=== PATIENT | male | born 2000 | race Caucasian/White ===

== ENCOUNTER 2020-01-31 14:10 | Observation (INO) ==
[~2020-01-31 14:10] MED LIST: DIPRIVAN VIAL ONE; NORCURON INJ 10 MG VIAL ONE; QUELICIN (OR ANECTINE) ONE; SUPRANE ONE; VERSED ONE; ZOFRAN INJ 4 MG VIAL ONE
[2020-01-31 14:18] VITALS: BMI 29.5
[2020-01-31] MEDS ORDERED: TORADOL 30 MG VIAL IVP ONE (15:58)
[2020-01-31] MEDS ORDERED: NS 1000 ML 1,000 ML IV SCH (16:00)
--- NOTE | 2020-01-31 16:27 | RAD ---
HISTORYRLQ PAIN NONESTUDYACUTE ABDOMEN SERIESCOMPARISONNoneFINDINGSThe trachea is midline. The cardiac silhouette is [unremarkable]. [The lungs are clear without focal mass or consolidation. There is no effusion or pneumothorax.] [The bony thorax is unremarkable].Flat plate and upright evaluation of the abdomen demonstrates a [normal bowel gas pattern]. There is no pneumoperitoneum. No pathological soft tissue mass or calcification can be observed. The bony structures are grossly intact.IMPRESSION1. [No acute cardiopulmonary disease.]2. [No evidence for acute abdominal pathology identified.]Electronically signed by: PATRICE CRYSTAL (Jan 31, 2020 16:26:36)
[2020-01-31] MEDS ORDERED: NS 1000 ML 1,000 ML ONE (16:28)
[2020-01-31] MEDS ORDERED: TORADOL 30 MG VIAL ONE (16:28)
[2020-01-31 16:49] LABS: BASOPHILS % (AUTO) 0.2 % (0.2-1.0); EOSINOPHILS # (AUTO) 0.3 x10^3/uL (0.0-0.2); EOSINOPHILS % (AUTO) 2.2 % (0.9-2.9); HEMATOCRIT 48.8 % (42.0-54.0); HEMOGLOBIN 16.7 g/dL (13.5-18.0); LYMPHOCYTES # (AUTO) 1.3 X10^3/uL (1.3-2.9); LYMPHOCYTES % (AUTO) 9.2 % (21.0-51.0); MEAN CORPUSCULAR HEMOGLOBIN 29.4 pg (27.0-34.0); MEAN CORPUSCULAR HGB CONC 34.1 g/dL (33.0-35.0); MEAN CORPUSCULAR VOLUME 86.1 fL (80.0-100.0); MEAN PLATELET VOLUME 7.8 fL (7.4-11.0); MONOCYTES # (AUTO) 0.8 x10^3/uL (0.3-0.8); NEUTROPHILS # (AUTO) 11.2 x10^3/uL (2.2-4.8); NEUTROPHILS % (AUTO) 82.4 % (42.0-75.0); PLATELET COUNT 254 X10^3/uL (150.0-450.0); RED BLOOD COUNT 5.67 X10^6/uL (4.7-6.0); RED CELL DISTRIBUTION WIDTH 12.9 % (11.6-16.5); WHITE BLOOD COUNT 13.6 X10^3/uL (3.6-10.0)
[2020-01-31 16:58] LABS: ALANINE AMINOTRANSFERASE 49 Units/L (12-78); ALBUMIN 4.6 g/dL (3.4-5.0); ALKALINE PHOSPHATASE 42 Units/L (46-116); ASPARTATE AMINO TRANSFERASE 27 Units/L (15-37); BLOOD UREA NITROGEN 11 mg/dL (7-18); CARBON DIOXIDE 32.1 mmol/L (21-32); CHLORIDE 100 mmol/L (98-107); CREATININE 1.15 mg/dL (0.70-1.30); SODIUM 135 mmol/L (136-145); TOTAL PROTEIN 8.9 g/dL (6.4-8.2); eGFR NON BLACK RACES > 60 (>60)
--- NOTE | 2020-01-31 17:18 | CT ---
HISTORYRLQ ABD PAINSTUDYABDOMEN/PELVIS WITH CONCOMPARISONNoneTECHNIQUEMultiple axial images of the abdomen and pelvis were obtained from the lung bases to the pubic symphysis after the administration of IV contrast. Dose reduction techniques including Automated Exposure Control (AEC) and adjustment of mA and kV were utilized.FINDINGSThe visualized portions of the lung bases are unremarkable . The liver, spleen, pancreas, kidneys, and adrenal glands are unremarkable in their CT appearance. The gallbladder is unremarkable in its CT appearance . No significant mesenteric lymphadenopathy or stranding can be observed. No free fluid or free air is seen within the abdomen. No bowel wall thickening or bowel dilatation is present. The colon is unremarkable. Specifically, there is no diverticulosis noted within the sigmoid colon. The appendix is enlarged at 13 mm in width with associated periappendiceal stranding. These findings are compatible with acute appendicitis. The urinary bladder is grossly unremarkable. The bony structures are grossly intact.IMPRESSIONAcute appendicitis.Electronically signed by: MALORIE CAN (Jan 31, 2020 17:17:00)
--- NOTE | 2020-01-31 17:29 | DR.EXTPAIN ---
HPI Time seen Time Seen by Provider: 01/31/20 14:40 PCP Primary Care Physician: KEVIN IQBAL Complaint/Symptoms Chief Complaint:: PATIENT STATES AROUND 8AM THIS MORNING HE STARTED HAVING PAIN IN THE RIGHT LOWER QUAD. STATES PAIN HAS GOTTEN WORSE OVER THE DAY. STATES PAIN IS THERE AT REST AND DURING EXERTION. COVID-19 Coronavirus risk:travel/contact w/high risk person: No Has patient experienced Coronavirus symptoms: No Source History Provided: Patient Mode of arrival Mode of Arrival: Ambulatory Timing Onset of Chief Complaint: 01/31/20 PMH PMH Past Medical History: No Past Surgical History: No Surgical History: No History Family History History of Family Medical Conditions: No Social History Does patient currently use any type of tobacco product: No Have you used tobacco products in the last 12 months: No Type of Tobacco Use: None Does any household member use tobacco: No Alcohol Use: None Do you use any recreational Drugs:: No Lives With: Alone Lives Where: Home Travel Risk Coronavirus risk:travel/contact w/high risk person: No Has patient experienced Coronavirus symptoms: No Infectious screening Have you traveled outside the country in the last 6 months?: No Isolation: Standard PE Vital Signs Vitals: Temperature 98 F Pulse Rate 86 Respiratory Rate 16 Blood Pressure [Left Arm] 136/88 Blood Pressure 140/92 O2 Sat by Pulse Oximetry 96 ROR Labs Reviewed Result Diagrams: 01/31/20 16:37 01/31/20 16:37 Laboratory: WBC 13.6 X10^3/uL (3.6-10.0) H 01/31/20 16:37 RBC 5.67 X10^6/uL (4.7-6.0) 01/31/20 16:37 Hgb 16.7 g/dL (13.5-18.0) 01/31/20 16:37 Hct 48.8 % (42.0-54.0) 01/31/20 16:37 MCV 86.1 fL (80.0-100.0) 01/31/20 16:37 MCH 29.4 pg (27.0-34.0) 01/31/20 16:37 MCHC 34.1 g/dL (33.0-35.0) 01/31/20 16:37 RDW 12.9 % (11.6-16.5) 01/31/20 16:37 Plt Count 254 X10^3/uL (150.0-450.0) 01/31/20 16:37 MPV 7.8 fL (7.4-11.0) 01/31/20 16:37 Neut % (Auto) 82.4 % (42.0-75.0) H 01/31/20 16:37 Lymph % (Auto) 9.2 % (21.0-51.0) L 01/31/20 16:37 [place] % (Auto) 6.0 % (0.0-13.0) 01/31/20 16:37 Eos % (Auto) 2.2 % (0.9-2.9) 01/31/20 16:37 Baso % (Auto) 0.2 % (0.2-1.0) 01/31/20 16:37 Neut # (Auto) 11.2 x10^3/uL (2.2-4.8) H 01/31/20 16:37 Lymph # (Auto) 1.3 X10^3/uL (1.3-2.9) 01/31/20 16:37 [place] # (Auto) 0.8 x10^3/uL (0.3-0.8) 01/31/20 16:37 Eos # (Auto) 0.3 x10^3/uL (0.0-0.2) H 01/31/20 16:37 Baso # (Auto) 0.0 X10^3/uL (0.0-0.1) 01/31/20 16:37 Absolute Nucleated RBC 0.0 /100WBC 01/31/20 16:37 Sodium 135 mmol/L (136-145) L 01/31/20 16:37 Corrected Sodium TNP 01/31/20 16:37 Potassium 3.8 mmol/L (3.5-5.1) 01/31/20 16:37 Chloride 100 mmol/L (98-107) 01/31/20 16:37 Carbon Dioxide 32.1 mmol/L (21-32) H 01/31/20 16:37 BUN 11 mg/dL (7-18) 01/31/20 16:37 Creatinine 1.15 mg/dL (0.70-1.30) 01/31/20 16:37 Est GFR (MDRD) Af Amer > 60 (>60) 01/31/20 16:37 Est GFR (MDRD) Non-Af > 60 (>60) 01/31/20 16:37 Glucose 101 mg/dL (65-99) H 01/31/20 16:37 Calcium 10.0 mg/dL (8.5-10.1) 01/31/20 16:37 Corrected Calcium TNP 01/31/20 16:37 Total Bilirubin 0.50 mg/dL (0.2-1.0) 01/31/20 16:37 AST 27 Units/L (15-37) 01/31/20 16:37 ALT 49 Units/L (12-78) 01/31/20 16:37 Alkaline Phosphatase 42 Units/L (46-116) L 01/31/20 16:37 Total Protein 8.9 g/dL (6.4-8.2) H 01/31/20 16:37 Albumin 4.6 g/dL (3.4-5.0) 01/31/20 16:37 Globulin 4.3 g/dL (2.5-4.5) 01/31/20 16:37 Albumin/Globulin Ratio 1.1 Ratio (1.1-2.1) 01/31/20 16:37 Lipase 124 Units/L (73-393) 01/31/20 16:37 XRAY XRAY Interpreted by: Radiologist X-ray Results: CT abdomin: acute appendicitis Opioid Opioid Risk Tool Age (Ang box if 16-45): Yes Total: 1 Total Score Risk Category: Low Risk Copyright: Jerel ZAVALA predicting aberrant behaviors Diagnosis Discharge Problem: Acute appendicitis Qualifiers: Acute appendicitis type: with localized peritonitis Appendicitis gangrene presence: without gangrene Appendicitis perforation presence: without perforation Appendicitis abscess presence: without abscess Qualified Code(s): K35.30 - Acute appendicitis with localized peritonitis, without perforation or gangrene Instructions Instructions: Laparoscopic Appendectomy, Adult, Care After, [id number]
[2020-01-31] MEDS ORDERED: FENTANYL INJ 250 mcg ONE (18:12)
[2020-01-31] MEDS ORDERED: PHENERGAN INJ 25 MG IM PRN (18:23)
[2020-01-31] MEDS ORDERED: DILAUDID INJ IVP PRN ×2 (18:23→19:47)
[2020-01-31] MEDS ORDERED: BENADRYL INJ 50 MG VIAL IVP PRN (18:23)
[2020-01-31] MEDS ORDERED: REGLAN INJ 10 MG VIAL IVP PRN (18:23)
[2020-01-31] MEDS ORDERED: ZOFRAN INJ 4 MG VIAL IVP PRN (18:23)
[2020-01-31] MEDS ORDERED: BACTROBAN TOPICAL OINT ONE (19:05)
[2020-01-31] MEDS ORDERED: LEVAQUIN PREMIX IV 500 MG 500 MG/100 ML BAG IV ONE (19:22)
[2020-01-31] MEDS ORDERED: ANCEF VIAL 1 GRAM IVP ONE (19:25)
[2020-01-31] MEDS ORDERED: FLAGYL IV PREMIX 500 MG BAG 500 MG/100 ML BAG IV ONE (21:14)
[2020-01-31] MEDS ORDERED: ZOSYN VIAL 3.375 GRAMS IV ONE (21:14)
[2020-01-31] MEDS ORDERED: D5 1/2 NS 1000 ML 1,000 ML IV ONE (21:14)
[2020-01-31] MEDS ORDERED: NS 100 ML IV + SPIKE MINIBAG* 100 ML IV ONE (21:15)
[2020-01-31] MEDS: ZOSYN VIAL 3.375 GRAMS 3.375 G in NS 100 ML IV + SPIKE MINIBAG* 100 ML IV SCH (21:52)
[2020-01-31] MEDS: D5 1/2 NS 1000 ML 1,000 ML IV SCH (21:52)
[2020-01-31] MEDS: FLAGYL IV PREMIX 500 MG BAG 500 MG/100 ML BAG IV SCH (22:38)
[2020-02-01] MEDS ORDERED: FLAGYL IV PREMIX 500 MG BAG 500 MG/100 ML BAG IV ONE (03:32)
[2020-02-01] MEDS ORDERED: ZOSYN VIAL 3.375 GRAMS IV ONE (03:33)
[2020-02-01] MEDS ORDERED: NS 100 ML IV + SPIKE MINIBAG* 100 ML IV ONE (03:33)
[2020-02-01] MEDS ORDERED: D5 1/2 NS 1000 ML 1,000 ML IV ONE (03:33)
[2020-02-01] MEDS: ZOSYN VIAL 3.375 GRAMS 3.375 G in NS 100 ML IV + SPIKE MINIBAG* 100 ML IV SCH (04:04)
[2020-02-01] MEDS: D5 1/2 NS 1000 ML 1,000 ML IV SCH (04:04)
[2020-02-01] MEDS: FLAGYL IV PREMIX 500 MG BAG 500 MG/100 ML BAG IV SCH ×2 (04:04→09:40)
[2020-02-01 08:05] VITALS: BP 131/70
[2020-02-01 09:13] LABS: BASOPHILS % (AUTO) 0.4 % (0.2-1.0); EOSINOPHILS % (AUTO) 0.4 % (0.9-2.9); HEMATOCRIT 41.7 % (42.0-54.0); HEMOGLOBIN 14.3 g/dL (13.5-18.0); LYMPHOCYTES # (AUTO) 1.2 X10^3/uL (1.3-2.9); LYMPHOCYTES % (AUTO) 10.1 % (21.0-51.0); MEAN CORPUSCULAR HEMOGLOBIN 29.4 pg (27.0-34.0); MEAN CORPUSCULAR HGB CONC 34.2 g/dL (33.0-35.0); MEAN CORPUSCULAR VOLUME 86.1 fL (80.0-100.0); MEAN PLATELET VOLUME 7.9 fL (7.4-11.0); MONOCYTES # (AUTO) 1.1 x10^3/uL (0.3-0.8); MONOCYTES % (AUTO) 9.4 % (0.0-13.0); NEUTROPHILS # (AUTO) 9.6 x10^3/uL (2.2-4.8); NEUTROPHILS % (AUTO) 79.7 % (42.0-75.0); PLATELET COUNT 216 X10^3/uL (150.0-450.0); RED BLOOD COUNT 4.84 X10^6/uL (4.7-6.0); RED CELL DISTRIBUTION WIDTH 12.8 % (11.6-16.5)
[2020-02-01 09:26] LABS: ALANINE AMINOTRANSFERASE 32 Units/L (12-78); ALBUMIN 3.3 g/dL (3.4-5.0); ALKALINE PHOSPHATASE 33 Units/L (46-116); ASPARTATE AMINO TRANSFERASE 17 Units/L (15-37); BLOOD UREA NITROGEN 9 mg/dL (7-18); CALCIUM 8.6 mg/dL (8.5-10.1); CARBON DIOXIDE 27.8 mmol/L (21-32); CHLORIDE 102 mmol/L (98-107); COR CA(FOR HYPOALB) 9.2 mg/dL (8.5-10.1); CREATININE 1.15 mg/dL (0.70-1.30); SODIUM 137 mmol/L (136-145); eGFR NON BLACK RACES > 60 (>60)
--- NOTE | 2020-04-11 01:59 | DR.EXTPAIN ---
HPI Time seen Time Seen by Provider: 01/31/20 14:40 PCP Primary Care Physician: DON MIRAMONTES Complaint/Symptoms Chief Complaint:: PATIENT STATES AROUND 8AM THIS MORNING HE STARTED HAVING PAIN IN THE RIGHT LOWER QUAD. STATES PAIN HAS GOTTEN WORSE OVER THE DAY. STATES PAIN IS THERE AT REST AND DURING EXERTION. COVID-19 Coronavirus risk:travel/contact w/high risk person: No Has patient experienced Coronavirus symptoms: No Source History Provided: Patient Mode of arrival Mode of Arrival: Ambulatory Timing Onset of Chief Complaint: 01/31/20 PMH PMH Past Medical History: No Past Surgical History: No (fist sx today) Surgical History: Appendectomy Family History History of Family Medical Conditions: No Social History Does patient currently use any type of tobacco product: No Have you used tobacco products in the last 12 months: No Type of Tobacco Use: None Does any household member use tobacco: No Alcohol Use: None Do you use any recreational Drugs:: No Lives With: Alone Lives Where: Home Travel Risk Coronavirus risk:travel/contact w/high risk person: No Has patient experienced Coronavirus symptoms: No Infectious screening Have you traveled outside the country in the last 6 months?: No Isolation: Standard ROS Review of Systems Constitutional: No Symptoms Reported Eyes: No Symptoms Reported ENTM: No Symptoms Reported Respiratoy: No Symptoms Reported Cardiovascular: No Symptoms Reported Gastrointestinal/Abdominal: Abdominal Pain (RLQ) and Nausea Genitourinary: No Symptoms Reported Neurological: No Symptoms Reported Musculoskeletal: No Symptoms Reported Integumentary: No Symptoms Reported Hematologic/Lymphatic: No Symptoms Reported Endocrine: No Symptoms Reported Psychiatric: No Symptoms Reported PE Vital Signs Vitals: Temperature 98 F Pulse Rate 86 Respiratory Rate 16 Blood Pressure [Left Arm] 136/88 Blood Pressure 140/92 O2 Sat by Pulse Oximetry 96 General Limitations: No Limitations General Appearance: Alert and In No Apparent Distress Head Head Exam: Normal Inspection, Atraumatic and Normocephalic Eyes Eye exam: Normal Appearance and EOMI ENT ENT Exam: Normal Exam and Normal Oropharynx Neck Neck Exam: Normal Inspection, Full ROM and Trachea Midline Chest Chest Inspection: Normal Inspection Respiratory Respiratory Exam: Normal Lung Sounds Bilat Respiratory Exam: Bilateral: Clear to Auscultation Cardiovascular Cardiovascular Exam: Regular Rate and Normal Rhythm Abdominal Exam Abdominal Exam: Normal Inspection, Normal Bowel Sounds, Soft and Tenderness; negative Distention and Guarding Abdominal Tenderness: RLQ Extremities Extremities Exam: Normal Inspection and Full ROM Upper Extremities Shoulder Exam: Normal Inspection and Full ROM Arm Exam: Normal Inspection and Full ROM Elbow Exam: Normal Inspection and Full ROM Forearm Exam: Normal Inspection and Full ROM Lower Extremities Gait Exam: Observed and Normal Back Back Exam: Normal Inspection and Full ROM Neurological Neurological Exam: Alert, Oriented X3, CN II-XII Intact and Normal Gait Psychiatric Psychiatric Exam: Normal Affect Skin Skin Exam: Normal Color ROR Labs Reviewed Result Diagrams: 02/01/20 08:56 02/01/20 08:56 Laboratory: WBC 13.6 X10^3/uL (3.6-10.0) H 01/31/20 16:37 RBC 5.67 X10^6/uL (4.7-6.0) 01/31/20 16:37 Hgb 16.7 g/dL (13.5-18.0) 01/31/20 16:37 Hct 48.8 % (42.0-54.0) 01/31/20 16:37 MCV 86.1 fL (80.0-100.0) 01/31/20 16:37 MCH 29.4 pg (27.0-34.0) 01/31/20 16:37 MCHC 34.1 g/dL (33.0-35.0) 01/31/20 16:37 RDW 12.9 % (11.6-16.5) 01/31/20 16:37 Plt Count 254 X10^3/uL (150.0-450.0) 01/31/20 16:37 MPV 7.8 fL (7.4-11.0) 01/31/20 16:37 Neut % (Auto) 82.4 % (42.0-75.0) H 01/31/20 16:37 Lymph % (Auto) 9.2 % (21.0-51.0) L 01/31/20 16:37 [place] % (Auto) 6.0 % (0.0-13.0) 01/31/20 16:37 Eos % (Auto) 2.2 % (0.9-2.9) 01/31/20 16:37 Baso % (Auto) 0.2 % (0.2-1.0) 01/31/20 16:37 Neut # (Auto) 11.2 x10^3/uL (2.2-4.8) H 01/31/20 16:37 Lymph # (Auto) 1.3 X10^3/uL (1.3-2.9) 01/31/20 16:37 [place] # (Auto) 0.8 x10^3/uL (0.3-0.8) 01/31/20 16:37 Eos # (Auto) 0.3 x10^3/uL (0.0-0.2) H 01/31/20 16:37 Baso # (Auto) 0.0 X10^3/uL (0.0-0.1) 01/31/20 16:37 Absolute Nucleated RBC 0.0 /100WBC 01/31/20 16:37 Sodium 135 mmol/L (136-145) L 01/31/20 16:37 Corrected Sodium TNP 01/31/20 16:37 Potassium 3.8 mmol/L (3.5-5.1) 01/31/20 16:37 Chloride 100 mmol/L (98-107) 01/31/20 16:37 Carbon Dioxide 32.1 mmol/L (21-32) H 01/31/20 16:37 BUN 11 mg/dL (7-18) 01/31/20 16:37 Creatinine 1.15 mg/dL (0.70-1.30) 01/31/20 16:37 Est GFR (MDRD) Af Amer > 60 (>60) 01/31/20 16:37 Est GFR (MDRD) Non-Af > 60 (>60) 01/31/20 16:37 Glucose 101 mg/dL (65-99) H 01/31/20 16:37 Calcium 10.0 mg/dL (8.5-10.1) 01/31/20 16:37 Corrected Calcium TNP 01/31/20 16:37 Total Bilirubin 0.50 mg/dL (0.2-1.0) 01/31/20 16:37 AST 27 Units/L (15-37) 01/31/20 16:37 ALT 49 Units/L (12-78) 01/31/20 16:37 Alkaline Phosphatase 42 Units/L (46-116) L 01/31/20 16:37 Total Protein 8.9 g/dL (6.4-8.2) H 01/31/20 16:37 Albumin 4.6 g/dL (3.4-5.0) 01/31/20 16:37 Globulin 4.3 g/dL (2.5-4.5) 01/31/20 16:37 Albumin/Globulin Ratio 1.1 Ratio (1.1-2.1) 01/31/20 16:37 Lipase 124 Units/L (73-393) 01/31/20 16:37 Opioid Opioid Risk Tool Age (Ang box if 16-45): Yes Total: 1 Total Score Risk Category: Low Risk Copyright: [facility] predicting aberrant behaviors Diagnosis Discharge Problem: Acute appendicitis Qualifiers: Acute appendicitis type: with localized peritonitis Appendicitis gangrene pres ence: without gangrene Appendicitis perforation presence: without perforation Appendicitis abscess presence: without abscess Qualified Code(s): K35.30 - Acute appendicitis with localized peritonitis, without perforation or gangrene Instructions Instructions: Fall Prevention in the Home, Adult, [id number] Laparoscopic Appendectomy, Adult, Care After, [id number] Pain Medicine Instructions, Uhpi-[id number] Incision Care, Adult, [id number] Appendicitis, [id number] Forms: Excuse From Work or School Precautions for COVID19 Patient Portal Social Distancing
== END 2020-02-01 11:20 | disposition home or self-care (01) ==
LOC: MED/SURG 14:10 → ER 14:10
PROVIDERS: ADMIT Surgery; ATTEND Surgery
PROC: APPYLAP (ICD-10-PCS; 2020-01-31 19:00)
DX: K35.890 Other acute appendicitis without perforation or gangrene; R10.31 Right lower quadrant pain